=== PATIENT | male | born 1980 | race Caucasian/White ===

== ENCOUNTER 2022-07-25 16:35 | Outpatient (CLI) | payer BC, SELFPAY | END 2022-07-25 16:36 | disposition home or self-care (01) | PROVIDERS: Visit Provider Nurse Practitioner Family | DX: R10.9 Unspecified abdominal pain (principal); R14.0 Abdominal distension (gaseous) | CPT/HCPCS: 80076; 86140 ==

== ENCOUNTER 2023-07-11 11:58 | Day surgery (SDC) | payer BC, SELFPAY ==
[2023-07-11] VITALS (52 sets, daily range): BP systolic 128–170; BP diastolic 79–104; PULSE 53–78; RESP 10–22; TEMP 36.3–36.8; O2SAT 95–100; BMI 29.8
--- NOTE | 2023-07-11 13:22 | ED_ITS ---
HPI - General Adult General Date Seen: 07/11/23 Chief complaint: Abdominal Pain Stated complaint: Abdominal pain Time Seen by Provider: 07/11/23 12:49 Source: patient, RN notes reviewed and old records reviewed Mode of arrival: ambulatory Limitations: no limitations History of Present Illness HPI narrative: Patient is a 43-year-old male, generally healthy, who presents for evaluation of abdominal pain which he says woke him from sleep at about 3:00 a.m.. He describes it is diffuse although it is more lower than upper. He has had no real nausea or vomiting but he has not had an appetite today. He has had 2 bowel movements, he says he typically has diarrhea most days but today did not have diarrhea. No black or bloody stools. He tried Pepto-Bismol and Gas-X without relief. Went to work but symptoms were troubling enough to him that he elected to come in. He denies urinary symptoms or fevers. He has not had pain quite like this in the past. No prior abdominal surgeries, denies significant medical history. Does not smoke, occasional alcohol. Related Data Home Medications Medication Instructions Recorded Confirmed cetirizine 10 mg tablet (Zyrtec) 10 mg PO DAILY PRN 07/25/22 07/11/23 famotidine 20 mg tablet 20 mg PO DAILY 07/25/22 07/11/23 losartan 50 mg-hydrochlorothiazide 1 tab PO DAILY 07/11/23 07/11/23 12.5 mg tablet Allergies Allergy/AdvReac Type Severity Reaction Status Date / Time No Known Drug Allergies Allergy Verified 07/11/23 14:27 Review of Systems Status of ROS: Reports: 10 or more systems reviewed and unremarkable except as noted in History and below PFSH PFS Medical History Abdominal distension ?R14.0 - Abdominal distension (gaseous) (ICD-10) Social History Smoking Status: Never smoker Do you use any of these nicotine containing products: None Second hand tobacco smoke exposure: No How often do you have six or more drinks on one occasion: Never AUDIT-C Alcohol total score: 0 Non-prescribed substance use: denies use service: No Exam Narrative: Exam Narrative: Vital signs as noted above. In general, an alert, well-appearing patient. Head: Normocephalic, atraumatic. Eyes: Pupils are equal reactive. Extraocular movements are full. Conjunctivae are normal. ENT: Mucous membranes are moist. Throat is normal. Neck: Supple without lymphadenopathy. Heart: Regular rate and rhythm. No murmur or rub. Lungs: Clear bilaterally. No increased work of breathing, crackles or wheezes. Abdomen: Soft and nondistended. He has some right-sided abdominal tenderness, greatest in the right lower quadrant. No rebound guarding or rigidity. Extremities: Well perfused. No edema. No calf tenderness. Pulses intact. Neurologic: Patient is alert and oriented to person and place. Speech is fluent. Face is symmetric. Moves all extremities equally. Affect: Normal. Skin: Warm and dry. Well perfused. Const: Vital Signs, click to edit/add: Vital Signs - 24 hr 07/11/23 12:04 07/11/23 13:53 07/11/23 14:00 Temperature 97.9 F Pulse Rate 75 65 Pulse Rate [Pulse Oximeter] 76 Respiratory Rate 20 Blood Pressure Blood Pressure [Ri ght Upper Arm] 170/80 H Pulse Oximetry 100 98 98 07/11/23 14:02 07/11/23 14:20 07/11/23 14:30 Temperature Pulse Rate 67 71 77 Pulse Rate [Pulse Oximeter] Respiratory Rate Blood Pressure 135/82 Blood Pressure [Ri ght Upper Arm] Pulse Oximetry 98 99 98 07/11/23 14:32 07/11/23 14:45 07/11/23 15:00 Temperature Pulse Rate 71 78 72 Pulse Rate [Pulse Oximeter] Respiratory Rate Blood Pressure 138/84 Blood Pressure [Ri ght Upper Arm] Pulse Oximetry 99 98 98 07/11/23 15:02 07/11/23 15:15 07/11/23 15:30 Temperature Pulse Rate 69 76 76 Pulse Rate [Pulse Oximeter] Respiratory Rate Blood Pressure 137/83 Blood Pressure [Ri ght Upper Arm] Pulse Oximetry 97 99 99 07/11/23 15:32 Temperature Pulse Rate 73 Pulse Rate [Pulse Oximeter] Respiratory Rate Blood Pressure 139/88 Blood Pressure [Ri ght Upper Arm] Pulse Oximetry 98 Documenting provider has reviewed patient's vital signs: yes Course Course ED Course: Discussed patient's exam findings with him, that symptoms could represent early appendicitis. Other considerations include biliary colic or cholecystitis, pancreatitis, gastritis, diverticulitis. Doubt obstruction in the absence of vomiting or previous abdominal surgeries. Offered CT scanning verses screening with labs and deciding on CT scanning after labs. Discussed risks and benefits of CT scan versus observation today. He has opted to start with labs. He denies need for anything for pain or nausea now. If labs are normal, he will opt to observe for the next 12-24 hours, returning for worsening symptoms or persistent symptoms at 12:00 p.m.. If labs are abnormal, then would recommend CT scan today. Lactate was normal at 1.4 but white blood cell count was elevated at [address] scan today. His BMP LFTs lipase are all normal. CRP is minimally elevated at 1.5. UA is negative. CT scan read by radiology as follows:FINDINGS: ABDOMEN Liver: Normal hepatic attenuation. No suspicious focal hepatic lesion. No intrahepatic biliary ductal dilatation. Patent portal and hepatic veins. Gallbladder: Normal gallbladder size. Normal common duct caliber. No pericholecystic inflammatory changes. Pancreas: Normal pancreatic attenuation. No focal lesion. Normal duct caliber. No peripancreatic inflammatory changes. Spleen: Normal splenic attenuation. No suspicious focal lesion. Patent splenic artery and vein. Adrenal Glands: Symmetrical adrenal glands. No focal lesion of significance. Kidneys: Normal bilateral renal attenuation. No suspicious focal lesion. Incidental benign 1.4 cm 8 HU right upper pole renal cortical cysts. No obstructing nephrolith or dilatation of the intrarenal collecting systems. Patent renal arteries and veins. Nondilated upper urinary tracts. Gastrointestinal tract: Thickened (12 mm) hyperenhancing appendix with surrounding periappendiceal fat stranding consistent with acute uncomplicated appendicitis. Otherwise normal caliber of the gastrointestinal tract, attenuation and wall thickness of the gastrointestinal tract. No inflammatory ch anges. Normal mesentery. Vascular: Abdominal aorta and its major proximal branches including the celiac, superior mesenteric, inferior mesenteric, renal, and bilateral common iliac arteries are patent. Inferior vena cava, portal and superior mesenteric veins are patent. Additional findings: No incidental adenopathy. No significant ascites, free fluid or pneumoperitoneum. PELVIS No bladder lesion is identified. No significant incidental findings related to the uterus and uterine adnexae. No significant incidental findings related to the prostate and seminal vesicles. No abnormal free fluid. No incidental adenopathy. SKELETON AND BODY WALL Bilateral L5 spondylolysis. No associated spondylolisthesis. Contiguous mild multilevel disc degeneration in the lower thoracic spine. Well-maintained vertebral body heights. LOWER THORAX Partially included lower thoracic wall, lungs, pleural spaces and mediastinum are otherwise without significant incidental findings. IMPRESSION: Acute uncomplicated appendicitis. Surgical consultation is recommended. Case discussed with Dr. Connors who will see the patient shortly and plan for appendectomy. Diagnosis explain to the patient and his . He is remaining comfortable at this time declines need for anything for pain. Vital Signs Vital signs: Initial Vital Signs Temperature 97.9 F 07/11/23 12:04 Temperature Source Temporal Artery Scan 07/11/23 12:04 Pulse Rate 76 07/11/23 12:04 Respiratory Rate 20 07/11/23 12:04 Blood Pressure 170/80 H 07/11/23 12:04 Blood Pressure Mean 110 H 07/11/23 12:04 Blood Pressure Position Sitting 07/11/23 12:04 Pulse Oximetry 100 07/11/23 12:04 Vital Signs Temperature 97.9 F 07/11/23 12:04 Pulse Rate 76 07/11/23 12:04 Respiratory Rate 20 07/11/23 12:04 Blood Pressure 170/80 H 07/11/23 12:04 Pulse Oximetry 100 07/11/23 12:04 Temperature 97.9 F 07/11/23 12:04 Pulse Rate 73 07/11/23 15:32 Respiratory Rate 20 07/11/23 12:04 Blood Pressure 139/88 07/11/23 15:32 Pulse Oximetry 98 07/11/23 15:32 Medications Administered Medications: Discontinued Medications Generic Name Dose Route Start Last Admin Trade Name Freq PRN Reason Stop Dose Admin Sodium Chloride 1,000 mls @ 1,000 mls/hr 07/11/23 14:00 07/11/23 14:56 0.9 % Sodium Chloride 1000 Ml IV 07/11/23 14:59 Infused .Q1H JOSE G Infusion Medical Decision Making Lab Data Labs: Lab Results 07/11/23 07/11/23 Range/Units 13:17 14:53 WBC 15.36 H (4.50-11.00) K/uL RBC 5.09 (4.30-5.90) m/uL Hgb 16.3 (13.5-17.5) gm/dL Hct 47.1 (37.0-53.0) % MCV 93 (80-100) fL MCH 32 (26-34) pg MCHC 35 (32-36) gm/dL RDW Coeff of Shahriar 11.9 (11.5-15.5) % Plt Count 289 (140-440) K/uL Neut % (Auto) 80.1 H (42.0-72.0) % Lymph % (Auto) 13.3 L (20-44) % [place] % (Auto) 6.3 (0.0-11.0) % Eos % (Auto) 0.1 (0.0-7.0) % Baso % (Auto) 0.1 (0.0-3.0) % Neut # (Auto) 12.30 H (1.7-7.0) K/uL Lymph # (Auto) 2.00 (0.90-2.90) K/uL [place] # (Auto) 1.00 H (0.00-0.90) K/UL Eos # (Auto) 0.00 (0.00-0.50) K/uL Baso # (Auto) 0.00 (0.00-0.30) K/uL Abs Immat Gran (auto) 0.00 (0.00-0.30) K/uL Imm/Tot Granulo (auto) 0.1 % Sodium 138 (135-149) mmol/L Potassium 3.7 (3.6-5.1) mmol/L Chloride 100 (96-114) mmol/L Carbon Dioxide 27 (20-32) mmol/L Anion Gap 11 (7-15) mEq/L BUN 18 (5-24) mg/dL Creatinine 1.1 (0.5-1.5) mg/dL Estimated Creat Clear 93.08 Estimated GFR 84 ml/min Glucose 102 (60-115) mg/dL Lactate 1.4 (0.5-1.9) mmol/L Calcium 10.2 (8.4-10.6) mg/dL Total Bilirubin 1.0 (0.1-1.5) mg/dL Direct Bilirubin 0.2 (0.0-0.5) mg/dL AST 31 (12-35) U/L ALT 38 (4-50) U/L Alkaline Phosphatase 89 (40-150) U/L C-Reactive Protein 1.5 H (0.5-1.0) mg/dL Total Protein 7.9 (6.0-8.3) g/dL Albumin 5.0 (3.3-5.0) g/dL Lipase 74 (23-300) U/L Urine Color Yellow (Yellow) Urine Appearance Clear (Clear) Urine pH 7.0 (5.0-8.5) Ur Specific [place] 1.015 (1.000-1.030) Urine Protein Negative (Negative) Urine Glucose (UA) Negative (Negative) Urine Ketones 1+ A (Negative) Urine Blood Negative (Negative) Urine Nitrite Negative (Negative) Urine Bilirubin Negative (Negative) Urine Urobilinogen 0.2 (0.2-1.0) Ur Leukocyte Esterase Negative (Negative) Urine RBC 0-2 (0-2) Urine WBC 0-2 (0-5) Ur Squamous Epith Cells None (None-Few) Urine Bacteria None (None) Discharge Plan Discharge Clinical Impression: Acute appendicitis Patient Disposition: XFER to OR Condition: Stable Follow Up/Referrals: Provider,Not a Local [Referring] -
[2023-07-11 13:25] LABS: Lactate* 1.4 mmol/L (0.5-1.9)
[2023-07-11 13:26] LABS: Basophils Percent Auto 0.1 % (0.0-3.0); Eosinophils Percent Auto 0.1 % (0.0-7.0); Hematocrit 47.1 % (37.0-53.0); Hemoglobin* 16.3 gm/dL (13.5-17.5); Immature Granulocytes Pct Auto 0.1 %; Lymphocytes Percent Auto 13.3 % (20-44); Mean Corpuscular HGB Conc 35 gm/dL (32-36); Mean Corpuscular Hemoglobin 32 pg (26-34); Mean Corpuscular Volume 93 fL (80-100); Monocytes Percent Auto 6.3 % (0.0-11.0); Neutrophils Percent Auto 80.1 % (42.0-72.0); Platelet Count* 289 K/uL (140-440); RDW Coefficient of Variation % 11.9 % (11.5-15.5); Red Blood Count 5.09 m/uL (4.30-5.90); White Blood Count* 15.36 K/uL (4.50-11.00)
[2023-07-11 13:28] LABS: Slide Review Reflex No
--- NOTE | 2023-07-11 13:35 | CT_ITS ---
Patient: SALLY RAZO Facility:?[facility] Patient ID:?[id number] Site Patient ID:?[id number]. Site :?[id number] Study:?CT-Abdomen/Pelvis W/ 108CC ISOVUE 370-07/11/2023 2:30:06 PM Ordering Physician:WILEY Final Report: INDICATION: Right lower quadrant pain. COMPARISON: None available. TECHNIQUE: CT of the abdomen and pelvis with 108 cc of Isovue 370 intravenous contrast. Please note that all CT scans at this facility use dose modulation, iterative reconstruction, and/or weight-based dosing when appropriate to reduce radiation dose to as low as reasonably achievable. FINDINGS: ABDOMEN Liver: Normal hepatic attenuation. No suspicious focal hepatic lesion. No intrahepatic biliary ductal dilatation. Patent portal and hepatic veins. Gallbladder: Normal gallbladder size. Normal common duct caliber. No pericholecystic inflammatory changes. Pancreas: Normal pancreatic attenuation. No focal lesion. Normal duct caliber. No peripancreatic inflammatory changes. Spleen: Normal splenic attenuation. No suspicious focal lesion. Patent splenic artery and vein. Adrenal Glands: Symmetrical adrenal glands. No focal lesion of significance. Kidneys: Normal bilateral renal attenuation. No suspicious focal lesion. Incidental benign 1.4 cm 8 HU right upper pole renal cortical cysts. No obstructing nephrolith or dilatation of the intrarenal collecting systems. Patent renal arteries and veins. Nondilated upper urinary tracts. Gastrointestinal tract: Thickened (12 mm) hyperenhancing appendix with surrounding periappendiceal fat stranding consistent with acute uncomplicated appendicitis. Otherwise normal caliber of the gastrointestinal tract, attenuation and wall thickness of the gastrointestinal tract. No inflammatory changes. Normal mesentery. Vascular: Abdominal aorta and its major proximal branches including the celiac, superior mesenteric, inferior mesenteric, renal, and bilateral common iliac arteries are patent. Inferior vena cava, portal and superior mesenteric veins are patent. Additional findings: No incidental adenopathy. No significant ascites, free fluid or pneumoperitoneum. PELVIS No bladder lesion is identified. No significant incidental findings related to the uterus and uterine adnexae. No significant incidental findings related to the prostate and seminal vesicles. No abnormal free fluid. No incidental adenopathy. SKELETON AND BODY WALL Bilateral L5 spondylolysis. No associated spondylolisthesis. Contiguous mild multilevel disc degeneration in the lower thoracic spine. Well-maintained vertebral body heights. LOWER THORAX Partially included lower thoracic wall, lungs, pleural spaces and mediastinum are otherwise without significant incidental findings. IMPRESSION: Acute uncomplicated appendicitis. Surgical consultation is recommended. Please note that all CT scans at this facility use dose modulation, iterative reconstruction, and/or weight-based dosing when appropriate to reduce radiation dose to as low as reasonably achievable. Dictated by Pravin Nguyen MD @ 07/11/2023 2:37:35 PM ----- ADDENDUM ----- ADDENDUM: Incidental note is made of mild bilateral hip osteoarthrosis, including subchondral cysts of the left acetabulum. Bilateral benign femoral head bone islands are seen. Report received by Dr. Tuttle at 1443 hours [employer] on 07/11/2023. Dictated by Pravin Nguyen MD @ Jul 11 2023 2:43PM Signed by:?Pravin Nguyen MD @07/11/2023 2:37:35 PM (Electronic Signature)
[2023-07-11 13:42] LABS: Chloride* 100 mmol/L (96-114); Potassium* 3.7 mmol/L (3.6-5.1); Sodium* 138 mmol/L (135-149)
[2023-07-11 13:45] LABS: Creatinine* 1.1 mg/dL (0.5-1.5); Est. Creatinine Clearance* 93.08; Estimated Glomerular Filt Rate 84 ml/min
[2023-07-11 13:46] LABS: Anion Gap 11 mEq/L (7-15); Aspartate Amino Transferase* 31 U/L (12-35); Bilirubin Direct* 0.2 mg/dL (0.0-0.5); Blood Urea Nitrogen* 18 mg/dL (5-24); Calcium* 10.2 mg/dL (8.4-10.6); Carbon Dioxide* 27 mmol/L (20-32); Glucose* 102 mg/dL (60-115); Total Protein* 7.9 g/dL (6.0-8.3)
[2023-07-11 13:47] LABS: Alanine Aminotransferase* 38 U/L (4-50); Alkaline Phosphatase* 89 U/L (40-150); Lipase* 74 U/L (23-300)
[2023-07-11 13:48] LABS: C Reactive Protein* 1.5 mg/dL (0.5-1.0)
[2023-07-11] MEDS: 0.9 % SODIUM CHLORIDE 1000 ml 1,000 ML IV (14:03)
[2023-07-11 15:00] LABS: Appearance Urine Clear (Clear); Bilirubin Urine Negative (Negative); Blood Urine Negative (Negative); Color Urine Yellow (Yellow); Glucose Urine Negative (Negative); Ketones Urine 1+ (Negative); Leukocyte Esterase Urine Negative (Negative); Nitrite Urine Negative (Negative); Protein Urine Negative (Negative); Specific Gravity Urine 1.015 (1.000-1.030); Urobilinogen Urine 0.2 (0.2-1.0)
[2023-07-11 15:16] LABS: RBC Urine 0-2 (0-2); WBC Urine 0-2 (0-5)
--- NOTE | 2023-07-11 17:18 | P.GSHP_ITS ---
History of Present Illness History of Present Illness Date Seen: 07/11/23 Chief complaint: Abdominal pain Narrative: Boom Vance is a 43 year old male with 1 day history of abdominal pain. He states that at 3:00 a.m. he woke up with pain in his mid abdomen. He could not sleep. He tried taking a shower but this did not help. He tried to induce vomiting however his pain did not improve with this. He tried Pepto-Bismol with no relief. He had a bowel movement which was normal. He went into work but continued to feel worse. He tried Gas-X but eventually could not walk. He came in to be seen and was found to have appendicitis. Denies fevers. No nausea. He has never had anything like this before. He last had a Jamil cracker at 7:00 a.m. but has not otherwise eaten anything today. [facility] Medical History (Updated 07/11/23 @ 17:54 by Xochitl Connors MD) GERD (gastroesophageal reflux disease) ?K21.9 - Gastro-esophageal reflux disease without esophagitis (ICD-10) Hypertension ?I10 - Essential (primary) hypertension (ICD-10) Environmental allergies ?Z91.09 - Other allergy status, other than to drugs and biological substances (ICD-10) Abdominal distension ?R14.0 - Abdominal distension (gaseous) (ICD-10) Surgical History (Updated 07/11/23 @ 17:54 by Xochitl Connors MD) History of surgery on arm ?Z98.890 - Other specified postprocedural states (ICD-10) S/P ACL reconstruction ?Z98.890 - Other specified postprocedural states (ICD-10) Social History (Updated 07/11/23 @ 17:54 by Xochitl Connors MD) Narrative: Works in [employer]. Alcohol occasional. Nonsmoker. Smoking Status: Never smoker Do you use any of these nicotine containing products: None Second hand tobacco smoke exposure: No How often do you have six or more drinks on one occasion: Never AUDIT-C Alcohol total score: 0 Non-prescribed substance use: denies use service: No Meds Home Medications and Allergies Home Medications Medication Instructions Recorded Confirmed Type cetirizine 10 mg tablet (Zyrtec) 10 mg PO DAILY PRN 07/25/22 07/11/23 History famotidine 20 mg tablet 20 mg PO DAILY 07/25/22 07/11/23 History losartan 50 mg-hydrochlorothiazide 1 tab PO DAILY 07/11/23 07/11/23 History 12.5 mg tablet Allergies Allergy/AdvReac Type Severity Reaction Status Date / Time No Known Drug Allergies Allergy Verified 07/11/23 14:27 Exam Narrative: Exam Narrative: General appearance: Alert, cooperative, and in no distress Eyes: PERRLA, eye lids clear, and sclera white HENT Head: Normocephalic Ears: External ears normal Pulmonary: Clear to auscultation bilaterally Cardiovascular Heart: Regular rate and rhythm Extremities: warm and well perfused Gastrointestinal Abdominal: No scars. Minimally distended. Tender in right lower quadrant with rebound. Musculoskeletal: Extremities: Upper: Both upper extremities have normal joint range of motion and intact strength. Lower: Both lower extremities have normal joint range of motion and intact strength. Skin: Normal skin color, texture, and turgor. Neurologic: No focal deficits Psychiatric: Alert, oriented, cooperative, normal affect. Const: Vital Signs, click to edit/add: Vital Signs - 24 hr 07/11/23 12:04 07/11/23 13:53 07/11/23 14:00 Temperature 97.9 F Pulse Rate 75 65 Pulse Rate [Pulse Oximeter] 76 Respiratory Rate 20 Blood Pressure Blood Pressure [Ri ght Upper Arm] 170/80 H Pulse Oximetry 100 98 98 07/11/23 14:02 07/11/23 14:20 07/11/23 14:30 Temperature Pulse Rate 67 71 77 Pulse Rate [Pulse Oximeter] Respiratory Rate Blood Pressure 135/82 Blood Pressure [Ri ght Upper Arm] Pulse Oximetry 98 99 98 07/11/23 14:32 07/11/23 14:45 07/11/23 15:00 Temperature Pulse Rate 71 78 72 Pulse Rate [Pulse Oximeter] Respiratory Rate Blood Pressure 138/84 Blood Pressure [Ri ght Upper Arm] Pulse Oximetry 99 98 98 07/11/23 15:02 07/11/23 15:15 07/11/23 15:30 Temperature Pulse Rate 69 76 76 Pulse Rate [Pulse Oximeter] Respiratory Rate Blood Pressure 137/83 Blood Pressure [Ri ght Upper Arm] Pulse Oximetry 97 99 99 07/11/23 15:32 Temperature Pulse Rate 73 Pulse Rate [Pulse Oximeter] Respiratory Rate Blood Pressure 139/88 Blood Pressure [Ri ght Upper Arm] Pulse Oximetry 98 Results Results Labs: White blood cell count is 15. Hemoglobin 16.3. CRP 1.5. Lactate 1.4. Abdomen CT scan report/results: report reviewed and image reviewed Additional studies: Patient: BOOM VANCE Facility:?[facility] Patient ID:?[id number] Site Patient ID:?[id number]. Site :?[id number] Study:?CT-Abdomen/Pelvis W/ 108CC ISOVUE 370-07/11/2023 2:30:06 PM Ordering Physician:WILEY Final Report: INDICATION: Right lower quadrant pain. COMPARISON: None available. TECHNIQUE: CT of the abdomen and pelvis with 108 cc of Isovue 370 intravenous contrast. Please note that all CT scans at this facility use dose modulation, iterative reconstruction, and/or weight-based dosing when appropriate to reduce radiation dose to as low as reasonably achievable. FINDINGS: ABDOMEN Liver: Normal hepatic attenuation. No suspicious focal hepatic lesion. No intrahepatic biliary ductal dilatation. Patent portal and hepatic veins. Gallbladder: Normal gallbladder size. Normal common duct caliber. No pericholecystic inflammatory changes. Pancreas: Normal pancreatic attenuation. No focal lesion. Normal duct caliber. No peripancreatic inflammatory changes. Spleen: Normal splenic attenuation. No suspicious focal lesion. Patent splenic artery and vein. Adrenal Glands: Symmetrical adrenal glands. No focal lesion of significance. Kidneys: Normal bilateral renal attenuation. No suspicious focal lesion. Incidental benign 1.4 cm 8 HU right upper pole renal cortical cysts. No obstructing nephrolith or dilatation of the intrarenal collecting systems. Patent renal arteries and veins. Nondilated upper urinary tracts. Gastrointestinal tract: Thickened (12 mm) hyperenhancing appendix with surrounding periappendiceal fat stranding consistent with acute uncomplicated appendicitis. Otherwise normal caliber of the gastrointestinal tract, attenuation and wall thickness of the gastrointestinal tract. No inflammatory changes. Normal mesentery. Vascular: Abdominal aorta and its major proximal branches including the celiac, superior mesenteric, inferior mesenteric, renal, and bilateral common iliac arteries are patent. Inferior vena cava, portal and superior mesenteric veins are patent. Additional findings: No incidental adenopathy. No significant ascites, free fl uid or pneumoperitoneum. PELVIS No bladder lesion is identified. No significant incidental findings related to the uterus and uterine adnexae. No significant incidental findings related to the prostate and seminal vesicles. No abnormal free fluid. No incidental adenopathy. SKELETON AND BODY WALL Bilateral L5 spondylolysis. No associated spondylolisthesis. Contiguous mild multilevel disc degeneration in the lower thoracic spine. Well-maintained vertebral body heights. LOWER THORAX Partially included lower thoracic wall, lungs, pleural spaces and mediastinum are otherwise without significant incidental findings. IMPRESSION: Acute uncomplicated appendicitis. Surgical consultation is recommended. Please note that all CT scans at this facility use dose modulation, iterative reconstruction, and/or weight-based dosing when appropriate to reduce radiation dose to as low as reasonably achievable. Dictated by Pravin Nguyen MD @ 07/11/2023 2:37:35 PM ----- ADDENDUM ----- ADDENDUM: Incidental note is made of mild bilateral hip osteoarthrosis, including subchondral cysts of the left acetabulum. Bilateral benign femoral head bone islands are seen. Progress Note:A&P Assessment and plan (1) Acute appendicitis: Status: Acute Plan We discussed that appendectomy is the preferred treatment for this. This can most often be done laparoscopically. We discussed risks and benefits of the procedure including but not limited to bleeding, need for conversion to open, risk of injury to other structures, need for possible bowel resection, and abscess formation. The patient understands that the risk of abscess is higher if the appendix is perforated. For that reason, we generally keep patient is in the hospital on IV antibiotics until vital signs and white blood cell count had normalized. We also discussed recovery including 2 weeks of lifting restrictions. He is agreeable to proceed and we will plan on proceeding to the OR at next availability.
--- NOTE | 2023-07-11 20:52 | PM.GSPRC ---
Operative Note Date of procedure: 07/11/23 Pre-op diagnosis: Acute appendicitis Post-op diagnosis: Same Type of Procedure: Laparoscopic appendectomy Indications: The patient is a 43-year-old male who presents to the emergency department with 1 day of abdominal pain. He was found to have elevated white blood cell count. CT scan showed acute non perforated appendicitis. I recommended appendectomy. After discussion he agreed to proceed. Procedure Description: After discussing the risks and benefits of the procedure, the patient signed informed consent.? The operative site was marked and the patient was brought to the operating room and placed on the operating table in supine position.? Care was taken to pad the patient's pressure points.?? The patient was then intubated by anesthesia.?? The operative site was then prepped and draped in the usual sterile fashion.? A time-out was then performed. Entrance to the abdomen was obtained via a 5 mm optical trocar in the left upper quadrant. The abdomen was insufflated and briefly surveyed for any signs of injury. There were none. A 12 mm port was placed inferior to the umbilicus as well as a 5 mm port in the left lower quadrant. Both were done under direct vision. The patient was then placed in Trendelenburg position with the right side up. The small bowel was gently moved out of the way and the appendix was in view. A small amount of dissection was necessary to free the appendix from the surrounding pelvic attachments. The appendix was grasped and pulled into view. This was dilated but non perforated. A mesenteric window was created between the base of the appendix and the mesoappendix. An Endo-RUDDY purple load stapler was then used to transect the appendix at its base. A vascular load stapler was then used to divide the mesoappendix. The staple lines were inspected for bleeding. There was none. The appendix was then removed from the abdomen using an Endo-Catch bag. The specimen was sent to pathology. Desufflated and the ports removed. The 12 mm port site fascia was closed with 0 Vicryl. The skin was then closed with absorbable subcuticular suture. Sterile dressings were then applied. Instrument sponge and needle counts were correct at the end of the case. The patient was then woken and transported to the PACU in stable condition. ? The patient tolerated the procedure well. Findings: Acute non perforated appendicitis Anesthesia: GETA Surgeon: Xochitl Connors MD Estimated blood loss (mL): 5 Specimen: Appendix Condition: stable Disposition: PACU
[2023-07-11] MEDS: PIPERACILLIN/TAZOBACTAM 3.375 GM INJ IVPB (21:00)
[2023-07-11] MEDS: BUPIVACAINE 0.25% 30 ML INJECTION (21:25)
--- NOTE | 2023-07-11 21:39 | P.ANES_ITS ---
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
[2023-07-11] MEDS: HYDROmorphone 0.5 mg/0.5 ml inj IVP (22:49)
[2023-07-11] MEDS: LACTATED RINGERS 1000 ML 1,000 ML 125 ML IV (22:54)
[2023-07-12] VITALS (10 sets, daily range): BP systolic 124–148; BP diastolic 80–93; PULSE 55–73; RESP 14–16; TEMP 36.6; O2SAT 95–99
[2023-07-12] MEDS: HYDROmorphone 0.5 mg/0.5 ml inj IVP (01:13)
[2023-07-12] MEDS: HYDROCODONE-ACETAMIN 5-325 MG 1 TAB PO (03:13)
--- NOTE | 2023-07-12 04:13 | PC.NURSE ---
Shift note: Pt arrived at the unit at 2218, conscious, alert and oriented with IV ringers lactate infusing at 125ml/hr. Dressing site inspected and appears clean and dry. Pain level was rated at 2/10 which later increased to 6 and and ==
--- NOTE | 2023-07-12 04:20 | PC.NURSE ---
Shift note: Pt arrived at the unit at 2218, conscious, alert and oriented with IV ringers lactate infusing at 125ml/hr. Dressing site inspected and appears clean and dry. Pain level was rated at 2/10 which later increased to 6. IV Deluded 0.5mg given. SCD and Incentive spirometer were given. Pt was started with plan water orally and gradually increased to apple juice and Jamil crackers as tolerated. Bowel sound hypoactive and lung sounds clear. Pt ambulated to with SBA. Icepack applied and pain managed with PRN medications as per chart. Pt walked in the hallway and tolerated well.
--- NOTE | 2023-07-12 08:03 | PM.DS1 ---
DS: Providers Provider Date Seen: 07/12/23 Date of admission: 07/11/23 Primary care physician: Howie Ibarra MD Admitting Clinician: Xochitl Connors MD Attending Physician on discharge: Xochitl Connors MD Date of Discharge: 07/12/23 DS: Diagnosis Discharge Diagnosis (1) Acute appendicitis: Status: Acute (2) S/P laparoscopic appendectomy: Status: Acute DS: Summary Hospital Course Hospital Course: The patient is a 43-year-old male who presented to the emergency department with abdominal pain. He underwent laparoscopic appendectomy and did well postoperatively. On postop day 1 he was deemed safe for discharge as his pain was controlled and he was tolerating a diet. Time Spent with Patient Time attestation: Total time spent providing and/or coordinating discharge services: Exam Narrative: Exam Narrative: General: Alert, oriented, no acute distress CV: Regular rate and rhythm Respiratory: Breathing nonlabored on room air Abdomen: Incisions are clean and dry. Const: Vital Signs, click to edit/add: Vital Signs - 24 hr 07/11/23 12:04 07/11/23 13:53 07/11/23 14:00 Temperature 97.9 F Pulse Rate 75 65 Pulse Rate [Pulse Oximeter] 76 Respiratory Rate 20 Blood Pressure Blood Pressure [Le ft Arm] Blood Pressure [Ri ght Upper Arm] 170/80 H Pulse Oximetry 100 98 [facility] 07/[facility] 14:02 07/11/23 14:20 07/11/23 14:30 Temperature Pulse Rate 67 71 77 Pulse Rate [Pulse Oximeter] Respiratory Rate Blood Pressure 135/82 Blood Pressure [Le ft Arm] Blood Pressure [Ri ght Upper Arm] Pulse Oximetry 98 99 [facility] 07/11/23 14:32 07/11/23 14:45 07/11/23 15:00 Temperature Pulse Rate 71 78 72 Pulse Rate [Pulse Oximeter] Respiratory Rate Blood Pressure 138/84 Blood Pressure [Le ft Arm] Blood Pressure [Ri ght Upper Arm] Pulse Oximetry 99 98 [facility] 07/11/23 15:02 07/11/23 15:15 07/11/23 15:30 Temperature Pulse Rate 69 76 76 Pulse Rate [Pulse Oximeter] Respiratory Rate Blood Pressure 137/83 Blood Pressure [Le ft Arm] Blood Pressure [Ri ght Upper Arm] Pulse Oximetry 97 99 99 Oxygen Delivery Me thod 07/11/23 15:32 07/11/23 15:33 07/11/23 15:45 Temperature Pulse Rate 73 67 74 Pulse Rate [Pulse Oximeter] Respiratory Rate Blood Pressure 139/88 Blood Pressure [Le ft Arm] Blood Pressure [Ri ght Upper Arm] Pulse Oximetry 98 98 97 Oxygen Delivery Me thod 07/11/23 16:00 07/11/23 16:02 07/11/23 16:15 Temperature Pulse Rate 72 67 67 Pulse Rate [Pulse Oximeter] Respiratory Rate Blood Pressure 136/86 Blood Pressure [Le ft Arm] Blood Pressure [Ri ght Upper Arm] Pulse Oximetry 96 97 97 Oxygen Delivery Me thod 07/11/23 16:30 07/11/23 16:31 07/11/23 16:45 Temperature Pulse Rate 66 70 66 Pulse Rate [Pulse Oximeter] Respiratory Rate Blood Pressure 135/87 Blood Pressure [Le ft Arm] Blood Pressure [Ri ght Upper Arm] Pulse Oximetry 96 97 96 Oxygen Delivery Me thod 07/11/23 17:00 07/11/23 17:02 07/11/23 17:15 Temperature Pulse Rate 70 67 67 Pulse Rate [Pulse Oximeter] Respiratory Rate Blood Pressure 128/87 Blood Pressure [Le ft Arm] Blood Pressure [Ri ght Upper Arm] Pulse Oximetry 97 98 97 Oxygen Delivery Me thod 07/11/23 17:30 07/11/23 17:32 07/11/23 17:45 Temperature Pulse Rate 68 71 67 Pulse Rate [Pulse Oximeter] Respiratory Rate Blood Pressure 132/93 H Blood Pressure [Le ft Arm] Blood Pressure [Ri ght Upper Arm] Pulse Oximetry 98 98 98 Oxygen Delivery Me thod 07/11/23 18:00 07/11/23 18:02 07/11/23 18:15 Temperature Pulse Rate 71 72 Pulse Rate [Pulse Oximeter] Respiratory Rate Blood Pressure 130/82 Blood Pressure [Le ft Arm] Blood Pressure [Ri ght Upper Arm] Pulse Oximetry 99 98 Oxygen Delivery Me thod 07/11/23 18:30 07/11/23 18:32 07/11/23 18:45 Temperature Pulse Rate 66 64 64 Pulse Rate [Pulse Oximeter] Respiratory Rate Blood Pressure 136/86 Blood Pressure [Le ft Arm] Blood Pressure [Ri ght Upper Arm] Pulse Oximetry 97 98 98 Oxygen Delivery Me thod 07/11/23 19:00 07/11/23 19:02 07/11/23 19:15 Temperature Pulse Rate 65 66 67 Pulse Rate [Pulse Oximeter] Respiratory Rate Blood Pressure 135/92 H Blood Pressure [Le ft Arm] Blood Pressure [Ri ght Upper Arm] Pulse Oximetry 96 97 99 Oxygen Delivery Me thod 07/11/23 19:30 07/11/23 19:32 07/11/23 19:45 Temperature Pulse Rate 65 67 65 Pulse Rate [Pulse Oximeter] Respiratory Rate Blood Pressure 133/81 Blood Pressure [Le ft Arm] Blood Pressure [Ri ght Upper Arm] Pulse Oximetry 97 97 98 Oxygen Delivery Me thod 07/11/23 20:06 07/11/23 20:15 07/11/23 21:40 Temperature 97.4 F L Pulse Rate 71 68 72 Pulse Rate [Pulse Oximeter] Respiratory Rate 14 Blood Pressure 145/99 H Blood Pressure [Le ft Arm] Blood Pressure [Ri ght Upper Arm] Pulse Oximetry 98 96 96 Oxygen Delivery Me thod Room Air 07/11/23 21:45 07/11/23 21:50 07/11/23 21:55 Temperature 98.3 F Pulse Rate 68 58 L 62 Pulse Rate [Pulse Oximeter] Respiratory Rate 13 10 L 20 Blood Pressure 151/104 H 148/94 H 146/84 H Blood Pressure [Le ft Arm] Blood Pressure [Ri ght Upper Arm] Pulse Oximetry 95 95 98 Oxygen Delivery Me thod Room Air Room Air Room Air 07/11/23 22:00 07/11/23 22:05 07/11/23 22:29 Temperature 97.8 F 98 F Pulse Rate 67 61 Pulse Rate [Pulse Oximeter] 57 L Respiratory Rate 22 14 16 Blood Pressure 137/87 146/94 H Blood Pressure [Le ft Arm] 145/91 H Blood Pressure [Ri ght Upper Arm] Pulse Oximetry 98 98 96 Oxygen Delivery Me thod Room Air Room Air Room Air 07/11/23 22:30 07/11/23 22:45 07/11/23 23:00 Temperature 98.2 F 97.9 F 97.9 F Pulse Rate Pulse Rate [Pulse Oximeter] 53 L 56 L 54 L Respiratory Rate 16 16 16 Blood Pressure Blood Pressure [Le ft Arm] 141/83 H 150/90 H 148/79 H Blood Pressure [Ri ght Upper Arm] Pulse Oximetry 97 97 96 Oxygen Delivery Me thod Room Air Room Air Room Air 07/11/23 23:15 07/12/23 00:33 07/12/23 00:34 Temperature 98 F 97.9 F 97.9 F Pulse Rate Pulse Rate [Pulse Oximeter] 68 57 L 73 Respiratory Rate 16 16 16 Blood Pressure Blood Pressure [Le ft Arm] 135/94 H 141/88 H 124/80 Blood Pressure [Ri ght Upper Arm] Pulse Oximetry 97 97 98 Oxygen Delivery Me thod Room Air Room Air Room Air 07/12/23 01:00 07/12/23 02:00 07/12/23 02:29 Temperature 98 F 98 F 98 F Pulse Rate Pulse Rate [Pulse Oximeter] 71 70 70 Respiratory Rate 16 16 16 Blood Pressure Blood Pressure [Le ft Arm] 142/92 H 144/84 H 144/84 H Blood Pressure [Ri ght Upper Arm] Pulse Oximetry 97 98 98 Oxygen Delivery Me thod Room Air Room Air Room Air 07/12/23 03:00 07/12/23 04:35 07/12/23 06:00 Temperature 97.9 F 97.9 F 97.9 F Pulse Rate Pulse Rate [Pulse Oximeter] 55 L 55 L 55 L Respiratory Rate 16 16 16 Blood Pressure Blood Pressure [Le ft Arm] 148/93 H 140/82 H 140/82 H Blood Pressure [Ri ght Upper Arm] Pulse Oximetry 99 99 99 Oxygen Delivery Me thod Room Air Room Air Room Air DS: Data Data Completed and Pending Labs on day of discharge: Labs from last 24 hours 07/11/23 07/11/23 14:53 13:17 WBC 15.36 H RBC 5.09 Hgb 16.3 Hct 47.1 MCV 93 MCH 32 MCHC 35 RDW Coeff of Shahriar 11.9 Plt Count 289 Neut % (Auto) 80.1 H Lymph % (Auto) 13.3 L [place] % (Auto) 6.3 Eos % (Auto) 0.1 Baso % (Auto) 0.1 Neut # (Auto) 12.30 H Lymph # (Auto) 2.00 [place] # (Auto) 1.00 H Eos # (Auto) 0.00 Baso # (Auto) 0.00 Abs Immat Gran (auto) 0.00 Imm/Tot Granulo (auto) 0.1 Sodium 138 Potassium 3.7 Chloride 100 Carbon Dioxide 27 Anion Gap 11 BUN 18 Creatinine 1.1 Estimated Creat Clear 93.08 Estimated GFR 84 Glucose 102 Lactate 1.4 Calcium 10.2 Total Bilirubin 1.0 Direct Bilirubin 0.2 AST 31 ALT 38 Alkaline Phosphatase 89 C-Reactive Protein 1.5 H Total Protein 7.9 Albumin 5.0 Lipase 74 Urine Color Yellow Urine Appearance Clear Urine pH 7.0 Ur Specific [place] 1.015 Urine Protein Negative Urine Glucose (UA) Negative Urine Ketones 1+ A Urine Blood Negative Urine Nitrite Negative Urine Bilirubin Negative Urine Urobilinogen 0.2 Ur Leukocyte Esterase Negative Urine RBC 0-2 Urine WBC 0-2 Ur Squamous Epith Cells None Urine Bacteria None Discharge Plan Discharge Disposition: Home w/ Parent or Adult Discharging Surgeon: Xochitl Connors Follow-Up Appointment: 2 weeks Sheng Prescriptions: New hydrocodone-acetaminophen 5-325 mg tablet 1 - 2 tab PO Q6H PRN (Reason: Pain) Qty: 15 0RF Rx Instructions: 1 - 2 tab orally as needed Continued famotidine 20 mg tablet 20 mg PO DAILY cetirizine [Zyrtec] 10 mg tablet 10 mg PO DAILY PRN losartan-hydrochlorothiazide 50-12.5 mg tablet 1 tab PO DAILY Activity Level: Activity as Tolerated Activity Detail: No lifting more than 20 lb for 2 weeks Discharge Diet: Regular Patient Instructions: Hydrocodone/Acetaminophen (By mouth), General Anesthesia (DC), Laparoscopic Appendectomy (DC) Additional Instructions: Wound care: Your sutures are under the skin and will dissolve over time. Leave steri strips (white bandages) over incisions until they fall off (or remove after 7 days). OK to shower tomorrow but avoid bathing, soaking or swimming for 2 weeks. Pat the incisions dry. No need to wash or scrub the area. Apply ice to the area as needed for swelling. It is also OK to use a heating pad if this provides more comfort to you. Pain control: You were prescribed a pain medication. This medication contains acetaminophen (Tylenol). If you are taking your prescribed pain pills 4 times daily, do not take additional acetaminophen. As your pain improves, you can try taking acetaminophen instead of the prescribed pain pill. It is ok to take Ibuprofen or Naproxen (per directions on packaging). This medication helps with inflammation and swelling. Take an [id number] stool softener while you are taking prescribed pain medications to help alleviate constipation. I recommend Senna and/or Colace. Take as directed on package. If you have not had a bowel movement in 3 days, try taking Miralax as directed on the package. All of these are available over the counter. Follow-up Follow up with Dr. Connors in 2-3 weeks Please call if you are experiencing severe pain, nausea, vomiting, difficulty urinating, fever or have not had bowel movement in 4 days after surgery. Follow-up: Xochitl Connors MD [Staff Physician] - 08/01/23 1:15 pm ([facility] for follow-up.) Provider,Not a Local [Referring] - Discharge Orders: Discharge Order (Routine); Ordered 07/11/23 Ordered By: Xochitl Connors
[2023-07-12] MEDS: LOSARTAN POTASSIUM 50 MG TABLET PO (08:56)
[2023-07-12] MEDS: hydroCHLOROthiazide 12.5 MG CAPSULE PO (08:56)
[2023-07-12] MEDS: FAMOTIDINE 20 MG TABLET PO (08:56)
--- NOTE | 2023-07-12 12:02 | PC.NURSE ---
Discharge: Patient pleasant and cooperative. Patient vitally stable, lungs clear, BS WNL, IV removed, catheter intact. Patient rates abdominal pain 1-2/10, no pain meds given. Abdominal Lap sites x3 C/D/I. Patient independent in room, tolerating regular diet, and urinating well. Patient signed discharge form, and had no further questions regarding discharge. Patient left to home by foot at 1129.
== END 2023-07-12 11:29 | disposition home or self-care (01) ==
LOC: ED 20:41 → OR 20:42 → MEDSURG 22:29
PROVIDERS: Emergency Provider Emergency Medicine; PCP Family Medicine; Visit Provider Surgery
PROC: 0DTJ4ZZ Resection of Appendix, Percutaneous Endoscopic Approach (ICD-10-PCS; CPT 44970; principal; 2023-07-11 18:00)
DX: K35.80 Unspecified acute appendicitis (principal); I10 Essential (primary) hypertension; K21.9 Gastro-esophageal reflux disease without esophagitis
CPT/HCPCS: 44970; 00840; 36415; 74177; 80048; 80076; 81001; 83605; 83690; 85025; 86140; 88304; 99140; 99284; 99285; A9270; J0330; J0665; J1100; J1170; J2405; J2543; J2704; J3010; J3490; J7030; J7120; Q9967